=== PATIENT | female | born 1960 | race Two or more races ===

== ENCOUNTER 2023-07-02 06:30 | Day surgery (SDC) | payer OTHER ==
[~2023-07-02] VITALS: Ht 167.6 cm; Wt 114.8 kg
[~2023-07-02 06:30] MED LIST: ALBUTEROL2.5 MG/3 M IH; LASIX40 MG PO; LIPITOR20 MG PO; METFORMIN HCL500 M3 PO; PEPCID AC10 MG PO; PLAVIX75 MG PO; PROAIR RESPICL90 MCG IH; REVATIO20 MG PO; SINGULAIR10 MG PO; SYMBICORT 16010.2 GM IH; TRIAMTERENE-HC1 EAC3 PO; VASOTEC10 MG PO; ZYRTEC10 M3 PO
== END 2023-07-02 20:35 | disposition home or self-care (01) ==
LOC: CIR.AMB 06:30
PROVIDERS: ATTEND Surgery
DX: D05.12 Intraductal carcinoma in situ of left breast (principal); R59.0 Localized enlarged lymph nodes; Z88.0 Allergy status to penicillin; Z88.8 Allergy status to other drugs, medicaments and biological substances; Z20.822 Contact with and (suspected) exposure to COVID-19
CPT/HCPCS: 19301; 38525; 38792; 19281; A9541; L8699

== ENCOUNTER 2025-06-21 10:07 | Outpatient (CLI) | payer OTHER | END 2025-06-21 10:14 | disposition home or self-care (01) | LOC: SONOGRAMA 10:07 | PROVIDERS: ATTEND Pathology Anatomic Pathology & Clinical Pathology | DX: D34 Benign neoplasm of thyroid gland (principal); E07.89 Other specified disorders of thyroid; E04.2 Nontoxic multinodular goiter ==